=== PATIENT | female | born 1945 | race African-American/Black ===

== ENCOUNTER 2018-01-24 01:46 | Inpatient (IN) | payer OTHER ==
--- NOTE | 2017-12-25 16:40 | History & Physical Pre-Op ---
General Information and HPI MD Statement: I have seen and personally examined TRACY IZAGUIRRE FJ and documented this H&P. The patient is a 72 year old F who presented with a patient stated chief complaint of low back pain, radiating to her right hip, posterior thigh, and calf with neurogenic claudication. Source of Information: patient Exam Limitations: no limitations History of Present Illness: Tracy is a 72-year-old female who has been complaining of a 2 year history of progressively worsening low back pain, radiating to her right hip, right anterior and posterior thigh, and into her calf. She does admit to quad weakness with intermittent buckling of her right leg as well as classic symptoms of neurogenic claudication with ambulation. She states the pain is worse when standing and improved with laying or sitting. Her MRI shows a facet cyst on the right side at L4-5 with grade 1 spondylolisthesis at L4-5. She does have moderate to severe spinal stenosis at L2-3 and L3-4, and severe spinal stenosis at L4-5. She does have moderate stenosis at L5-S1. Tracy has participated in physical therapy which has given her minimal and temporary symptom relief. Due to her progressive weakness in her right leg, severe pain, as well as her failure to respond to conservative measures, Tracy wants nothing more to do with nonsurgical treatment and has been consented for a posterior lumbar decompression and fusion with possible iliac crest bone grafting L2-S1 on January 24, 2018. 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 FATHER (ASCVD). , Age 91; Cause: Prostate cancer. 2 brothers and 4 sisters [employer] Psychosocial History Where Do You Live? Home Who Do You Live With? 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 Exam & Diagnostic Data Last 24 Hrs of Vital Signs/I&O Height: 5'7" Weight:148 lbs. Physical Exam General Appearance Alert, Oriented X3, Cooperative, Mild Distress Skin No Rashes, No Breakdown, No Significant Lesion HEENT Atraumatic, PERRLA, EOMI, Mucous Membr. moist/pink Neck Supple, No JVD, No thryomegaly, +2 Carotid Pulse wo Bruit Lymphatic Cervical nl Cardiovascular Regular Rate, Normal S1, Normal S2, No Murmurs Lungs Clear to Auscultation Abdomen Normal Bowel Sounds, Soft, No Tenderness, No Masses Neurological Normal Tone, Sensation Intact, Reflexes 2+, +SLR on right, weak right ant. tib and quad on right +4/5 Extremities No Clubbing, No Cyanosis, No Edema, Normal Pulses Vascular Normal Pulses Last 24 Hrs of Labs/Rigo: Microbiology 01/24 0755 URINE ROUT: Urine Culture - COLB Medication List Current Psychiatric Med(s): Simvastatin 20mg daily(PM) TUMS prn GERD Bactrim DS 1 po BID x 5 days (started 01/14/18) Aloe H2O prn GERD Assessment/Plan Assessment/Plan: Assessment: Severe spinal stenosis at L2-3, L3-4, L4-5, and L5-S1 with a right facet cyst at L4-5 and spondylolisthesis at L3-4 and L4-5. Plan: Tracy is scheduled for a posterior lumbar decompression and fusion with possible iliac crest bone grafting L2-S1 on the 01/24/2018. We discussed the procedure in full detail as well as the pre-and postoperative course, follow-up care, and anticipated recovery. We also discussed the do's and don'ts and postoperative discharge instructions. We discussed the alternatives, benefits, and risks, not to exclude, , paralysis, infection, bleeding, continued pain , failure of the surgery, need for future surgery, DVT, vascular injury, CSF leak, etc., and given these risks, she still wishes to proceed. She is scheduled to follow-up with her primary care physician for preoperative surgical clearance. Any changes in this patient's plan is based on this patient's outpatient clinical presentation. As Ranked By This Provider Problem List: 1. Hyperlipidemia Copies To: Maximiliano MCWILLIAMS,Dameon Attending MD Review Statement Attending Statement Attending MD Statement: examined this patient, discuss w/resident/PA/HI RANGER OPERATOR, agreed w/resident/PA/HI RANGER OPERATOR, reviewed images
[~2018-01-24] VITALS: Ht 170.2 cm; Wt 74.1 kg
[~2018-01-24 01:46] MED LIST: SIMVASTATIN20 M2 PO
--- NOTE | 2018-01-24 10:14 | Operative Report ---
Operative/Inv Procedure Report Surgery Date: 01/24/18 Name of Procedure: Lumbar laminectomy L2 L3 L4 L5-S1 neural lysis right L5 and L4 nerve roots. Autologous bone lateral fusion L2-3 45 S1. Use of fluoroscopy. Pre-Operative Diagnosis: Spinal stenosis L2 through S1. Post-Operative Diagnosis: Same. Osteoporosis. Estimated Blood Loss: 50ml to 100ml Surgeon/Training Mgr: Maximiliano MCWILLIAMS,Margarita Xiao Anesthesia: general endotracheal tube Operative/Procedure Note Note: After adequate general anesthesia was achieved the patient was placed in the prone position with all bony prominences padded. The back was sterilely prepped and draped. She was made in the midline and carried down sharply over the dorsal elements. A metallic object was placed and fluoroscopy was used to identify surgical level. Dissection was carried lateral over the facet joints which were markedly enlarged identifying degenerative facet disease. There were ganglion cyst at [id number] on the right side. The high-speed bur was used to decorticate the lamina on the right side from L2 through S1 the curettes and Kerrisons were used to perform the laminectomy and the bone removed was saved for fusion. There is severe stenosis at L4 5 and relatively severe at L2-3 on the right side. A large ganglion cyst was removed from within the canal both at L4 5 and L2-3. There was a herniated disc over the superior medial aspect of the pedicle at L5 extending across the disc space at L4 5 and behind the anterolisthesis body of L4 which was all removed. The disc material was adherent to the L4 and L5 nerve roots on the right side and a neuro lysis was performed of L4 and L5 to free up the nerve roots. Nerve which was swollen and markedly erythematous. Laminectomies were performed at L2-L3 L4-L5 and S1 on the right side. The wound was irrigated Gelfoam was laid over the laminotomy site the lateral intertransverse region was decorticated with the high-speed bur and bone was packed from L2 through S1 on the right side. The wound was irrigated again irrigated and a closure of the lumbodorsal fascia was performed with absorbable suture as was subcutaneous cutaneous tissue. The skin was closed with nette. After placement sterile dressings the patient was transferred to the stretcher and taken to the recovery room. There is severe osteoporosis identified during the laminectomies. Findings: Severe osteoporosis.
--- NOTE | 2018-01-24 11:02 | Patient Discharge Instructions ---
Acute Coronary Syndrome Inclusion Criteria At DC or during hospital stay patient has or had the following: ACS DIAGNOSIS No Discharge Core Measures Meds if any: Prescribed or Continued at Discharge Meds if any: NOT Prescribed or Continued at Discharge Congestive Heart Failure Inclusion Criteria At DC or during hospital stay patient has or had the following: CHF DIAGNOSIS No Discharge Core Measures Meds if any: Prescribed or Continued at Discharge Meds if any: NOT Prescribed or Continued at Discharge Cerebrovascular accident Inclusion Criteria At DC or during hospital stay patient has or had the following: CVA/TIA Diagnosis No Discharge Core Measures Meds if any: Prescribed or Continued at Discharge Meds if any: NOT Prescribed or Continued at Discharge Venous thromboembolism Inclusion Criteria VTE Diagnosis No VTE Type NONE VTE Confirmed by (Test) NONE Discharge Core Measures - Per Current guidelines, there needs to be overlap - treatment for the first 5 days of Warfarin therapy. - If discharged on Warfarin prior to 5 days of - overlap therapy, the patient will need to be - assessed for post discharge needs including - *Post discharge parental anticoagulation - *Warfarin and/or parental anticoagulation education - *Follow up date to check INR post discharge At least 5 days overlap therapy as Inpatient No Meds if any: Prescribed or Continued at Discharge Note: Overlap Therapy is Warfarin and Anticoagulant Meds if any: NOT Prescribed or Continued at Discharge
[2018-01-24] MEDS ORDERED: MILK OF MA400 MG/52 PO (11:04)
[2018-01-24] MEDS ORDERED: COLACE100 M1 PO (11:04)
[2018-01-24] MEDS ORDERED: OS-CAL 500+D31 EAC1 PO (11:04)
[2018-01-24] MEDS ORDERED: VITAMIN D31000 UNI2 PO (11:04)
[2018-01-24] MEDS ORDERED: PERCOCET 5-3251 EACH PO (11:04)
[2018-01-24] MEDS ORDERED: MULTIVITAMINS1 EAC9 PO (11:04)
[2018-01-24] MEDS ORDERED: DULCOLAX10 M1 RC (11:04)
[2018-01-24] MEDS ORDERED: TYLENOL EXTRA500 M2 PO (11:04)
[2018-01-24 13:25] VITALS: BP 122/62
--- NOTE | 2018-01-24 14:22 | RADIOLOGY REPORT ---
EXAMINATION: X-RAY LUMBAR SPINE IN THE OR CLINICAL INFORMATION: Lumbar laminectomy. COMPARISON: There are no prior studies available for comparison. TECHNIQUE: 2 lateral views of the lumbar spine were obtained. FINDINGS: Both images demonstrate mild grade 1 anterolistheses of L3 on L4 and L4 on L5. On both images, metallic a probe is noted posterior to the superior body of L4 and projected over the facet regions. Retraction forceps are noted posteriorly. Number of images: 2. Fluoroscopy time: 0.1 minutes. IMPRESSION: 1. The lateral views of the lumbar spine demonstrate anterolistheses at L3-L4 and L4-L5. 2. Please see operative report for further details.
--- NOTE | 2018-01-24 15:16 | PN- General Surgery ---
Subjective Subjective: Pt lying in bed on her side. resting comfortably, arousable. Appropriate, no complaints. Objective Vital Signs and I&Os Vital Signs Date Time Temp Pulse Resp B/P B/P Pulse O2 O2 Flow FiO2 Mean Ox Delivery Rate 01/24 1505 Room Air 01/24 1325 97.5 79 16 122/62 96 Room Air Intake & Output 01/24 1600 01/24 0800 01/24 0000 01/23 1600 01/23 0800 01/23 0000 Intake Total Output Total Balance Patient 146 lb Weight Alert oriented, appropriate Vital signs stable Heart regular Lungs clear Abd. benign Back with dressing on, clean, dry No gross neurological deficits Assessment/Plan Assessment/Plan s/p- lumbar lami for spinal stenosis POD#0 Hemodynamically stable No bleeding issues Dressing intact Neurovascular check intact Comfortable Plan as ordered. Core Measures Venous Thromboembolism VTE Risk Factors Surgery No Mechanical VTE Prophylaxis d/t N/A MechProphylax Ordered No VTE Pharm Prophylaxis d/t Surgical Contraindication
[2018-01-24 22:09] VITALS: BP 132/60
[2018-01-25 06:41] VITALS: BP 130/58
[2018-01-25 09:36] LABS: ABSOLUTE BASOPHIL COUNT 0.1 /CUMM (0.0-0.2); ABSOLUTE EOSINOPHIL COUNT 0 /CUMM (0.0-0.7); ABSOLUTE GRANULOCYTE CT 11.7 /CUMM (1.4-6.5); ABSOLUTE LYMPH COUNT 1.9 /CUMM (1.2-3.4); ABSOLUTE MONOCYTE COUNT 0.8 /CUMM (0.10-0.60); BASOPHIL % 0.4 % (0.0-2.0); EOSINOPHIL % 0.2 % (0-5); GRANULOCYTE % 81.2 % (42.2-75.2); MEAN CORPUSCULAR HGB 30.7 PG (27.0-31.0); MEAN CORPUSCULAR HGB CONC 33.7 G/DL (33.0-37.0); MEAN CORPUSCULAR VOLUME 91.2 FL (81.0-99.0); MEAN PLATELET VOLUME 7.8 FL (7.4-10.4); PLATELET COUNT 268 /CUMM (130-400); RBC DISTRIBUTION WIDTH 13.4 % (11.5-14.5)
[2018-01-25 09:54] LABS: WHITE BLOOD CELL COUNT 14.4 /CUMM (4.8-10.8)
--- NOTE | 2018-01-25 10:39 | Surg Short-stay <48hrs Dis Sum ---
Visit Information Visit Dates Admission Date: 01/24/18 Discharge Date: 01/26/18 Surgical Short Stay DC Summary Admission Diagnosis: Spinal stenosis L2 through S1 Final Diagnosis: Spinal stenosis L2 through S1, and osteoporosis Procedure(s): Surgery Date: 01/24/18 Name of Procedure: Lumbar laminectomy L2 L3 L4 L5-S1 neural lysis right L5 and L4 nerve roots. Autologous bone lateral fusion L2-3 45 S1. Use of fluoroscopy. Summary/Significant Findings: Electively scheduled lumbar laminectomy L2-L3, L4 L5-S1 neural lysis right L5 and L4 nerve roots, autologous bone lateral fusion L2-3, L4-5, L5-S1, for history of spinal stenosis L2 through S1, by on 01/24/18. Pain control transitioned from iv to oral medication as able. Dressing changed post-op day#1 morning. Evaluated by PT for mobilization and clearance for discharge. Condition at Discharge: stable Discharge Disposition: home or self care Discharge instructions provided to patient/family: Yes Post discharge follow-up plan: follow up with as directed
--- NOTE | 2018-01-25 16:18 | PN- Orthopedic ---
Subjective Subjective: Patient c/o expected postop incisional pain. No preop right leg pain or new pain in extremities. Mary Ann. po. No N/V, fever/chills. + Voiding and flatus. Ambulated with PT without difficulty. Review of Systems: Remarkable for the above complaints. Objective Vital Signs and I&Os Vital Signs Date Time Temp Pulse Resp B/P B/P Pulse O2 O2 Flow FiO2 Mean Ox Delivery Rate 01/25 0641 98.6 64 20 130/58 99 01/24 2209 98.6 69 18 132/60 99 Room Air Intake & Output 01/25 1600 01/25 0801/25 0000 01/24 1600 01/24 0801/24 0000 Intake Total 1040 820 Output Total 200 500 500 500 Balance -200 540 -500 320 Intake, IV 800 700 Intake, Oral 240 120 Output, Urine 200 500 500 500 Patient 146 lb Weight Physical Exam General Appearance: well developed/nourished, no apparent distress, alert, awake Respiratory: normal breath sounds, no respiratory distress Cardiovascular: regular rate/rhythm Abdomen: normal bowel sounds, soft, non-tender Back: Incision C/D/I. Dressing changed. Neurologic/Psychiatric: Neurovascular exam in aditya. UE/LE remains unchanged and stable with no new or worsening gross motor or sensory loss. Skin: intact, normal color, warm/dry Assessment/Plan Assessment/Plan Assessment: S/p right L2-S1 decompression/fusion with local bone Plan: Continue pain and bowel regimen Ambulate with PT/Nursing Plan D/C in am if stable Do's and Don'ts explained Disch Instr. given Will F/U as outpatient Problem List: 1. Hyperlipidemia Core Measures Venous Thromboembolism VTE Risk Factors Surgery No Mechanical VTE Prophylaxis d/t Early Ambulation No VTE Pharm Prophylaxis d/t Surgical Contraindication Attending MD Review Statement Attending Statement Attending MD Statement: examined this patient, discuss w/resident/PA/MANAGER PSYCHOLOGY, agreed w/resident/PA/MANAGER PSYCHOLOGY
[2018-01-25 23:06] VITALS: BP 110/65
[2018-01-26 06:39] VITALS: BP 116/50
[2018-01-26 13:38] VITALS: BP 140/80
== END 2018-01-26 17:30 | DRG 460 ==
LOC: SDA 01:46 → ENRESERV 11:59 → ENTRNSPT 13:05 → EDTRNSPT 13:15 → EDTRNSPTSTS 13:15 → 2NA 13:29 → CMPTRNSPT 13:36 → ENPENDDIS 01-26 12:01 → 2NA 01-26 17:30
PROVIDERS: Orthopaedic Surgery Orthopaedic Surgery of the Spine
PROC: 0QB10ZZ Excision of Sacrum, Open Approach (ICD-10-PCS; principal; 2018-01-24)
PROC: 0SG107J Fusion of 2 or more Lumbar Vertebral Joints with Autologous Tissue Substitute, Posterior Approach, Anterior Column, Open Approach (ICD-10-PCS; principal; 2018-01-24)
PROC: 0SG307J Fusion of Lumbosacral Joint with Autologous Tissue Substitute, Posterior Approach, Anterior Column, Open Approach (ICD-10-PCS; principal; 2018-01-24)
PROC: 0QB00ZZ Excision of Lumbar Vertebra, Open Approach (ICD-10-PCS; principal; 2018-01-24)
DX: M48.07 Spinal stenosis, lumbosacral region (principal); I10 Essential (primary) hypertension; E78.5 Hyperlipidemia, unspecified; K21.9 Gastro-esophageal reflux disease without esophagitis; Z90.710 Acquired absence of both cervix and uterus
CPT/HCPCS: 2NAP; 36415; 36592; 76000; 87086; 97116-GO; 97161-GP; J0131; J0690; J2405; J3250; J3490; J7120